=== PATIENT | male | born 1990 | race Caucasian/White ===

== ENCOUNTER 2016-06-23 09:17 | Emergency (ER) | payer OTHER ==
--- NOTE | 2016-06-23 10:00 | Emergency Department Record ---
History of Present Illness - General Chief complaint: Pain Stated complaint: SHOULDER INJURY Time Seen by Provider: 06/23/16 09:40 Source: Patient Mode of Arrival: Ambulatory Limitations: No limitations - History of Present Illness Initial comments: pt dislocated his l shoulder for the 2nd time in 2 months at work. the 1st time i relocated it and sent him to occupational health. it went out again this am and then popped back in on its own. he has not seen an orthopedic surgeon. he is already on light duty and this mornings dislocation happened with just climbing into his truck. MD Complaint: Joint pain Onset/Timin -: Hour(s) Location: Left, Shoulder History of Same: Yes Severity scale (1-10): 1 Consistency: Intermittent, Now resolved Worsens with: Exertion Associated Symptoms: Denies other symptoms - Related Data Home Medications Medication Instructions Recorded Confirmed Last Taken No Home Med [NO HOME MEDS] 06/23/16 06/23/16 Unknown Allergies Allergy/AdvReac Type Severity Reaction Status Date / Time tramadol HCl [From Ultram] Allergy NEUROTOXICI Verified 06/23/16 09:23 TY Travel Screening - Travel/Exposure Within Last 30 Days Have you traveled within the last 30 days?: No Review of Systems Reviewed: No additional complaints except as noted below Constitutional: Reports: As per HPI. Denies: Chills, Fever, Malaise, Night sweats, Weakness, Weight change Eyes: Reports: As per HPI. Denies: Eye discharge, Eye pain, Photophobia, Vision change ENT: Reports: As per HPI. Denies: Congestion, Dental pain, Ear pain, Epistaxis , Hearing loss, Throat pain Respiratory: Reports: As per HPI. Denies: Cough, Dyspnea, Hemoptysis, Stridor, Wheezes Cardiovascular: Reports: As per HPI. Denies: Arrhythmia, Chest pain, Dyspnea on exertion, Edema, Murmurs, Orthopnea, Palpitations, Paroxysmal nocturnal dyspnea, Rheumatic Fever, Syncope Endocrine: Reports: As per HPI. Denies: Fatigue, Heat or cold intolerance, Polydipsia, Polyuria Gastrointestinal: Reports: As per HPI. Denies: Abdominal pain, Constipation, Diarrhea, Hematemesis, Hematochezia, Melena, Nausea, Vomiting Genitourinary: Reports: As per HPI. Denies: Dysuria, Frequency, Hematuria, Incontinence, Retention, Testicular pain, Testicular mass, Urgency Musculoskeletal: Reports: As per HPI. Denies: Arthralgia, Back pain, Gout, Joint swelling, Myalgia, Neck pain Skin: Reports: As per HPI. Denies: Bruising, Change in color, Change in hair/ nails, Lesions, Pruritus, Rash Neurological: Reports: As per HPI. Denies: Abnormal gait, Confusion, Headache, Numbness, Paresthesias, Seizure, Tingling, Tremors, Vertigo, Weakness Psychiatric: Reports: As per HPI. Denies: Anxiety, Auditory hallucinations, Depression, Homicidal thoughts, Suicidal thoughts, Visual hallucinations Hematological/Lymphatic: Reports: As per HPI. Denies: Anemia, Blood Clots, Easy bleeding, Easy bruising, Swollen glands Past Medical History - SOCIAL HISTORY Smoking Status: Former smoker Alcohol Use: None Drug Use: None - RESPIRATORY Hx Respiratory Disorders: No - CARDIOVASCULAR Hx Cardio Disorders: No - NEURO Hx Neuro Disorders: No - GI Hx GI Disorders: No - Hx Genitourinary Disorders: No - ENDOCRINE Hx Endocrine Disorders: No - MUSCULOSKELETAL Hx Musculoskeletal Disorders: No - PSYCH Hx Psych Problems: No - HEMATOLOGY/ONCOLOGY Hx Hematology/Oncology Disorders: No Family Medical History Any Significant Family History?: No Physical Exam - General General Appearance: Alert, Oriented x3, Cooperative, Mild distress - Head Head exam: Normal inspection - Eye Eye exam: Normal appearance, PERRL, EOMI Pupils: Normal accommodation - ENT ENT exam: Normal exam, Mucous membranes moist, Normal external ear exam, Normal orophraynx Ear exam: Normal external inspection. negative: External canal tenderness Nasal Exam: Normal inspection. negative: Discharge, Sinus tenderness Mouth exam: Normal external inspection, Tongue normal Teeth exam: Normal inspection. negative: Dental caries Throat exam: Normal inspection. negative: Tonsillar erythema, Tonsillar exudate - Neck Neck exam: Normal inspection, Full ROM. negative: Tenderness - Respiratory Respiratory exam: Normal lung sounds bilaterally. negative: Respiratory distress - Cardiovascular Cardiovascular Exam: Regular rate, Normal rhythm, Normal heart sounds - GI/Abdominal GI/Abdominal exam: Soft, Normal bowel sounds. negative: Tenderness - Rectal Rectal exam: Deferred - exam: Deferred - Extremities Extremities exam: Normal capillary refill, Tenderness, Other (s,v intact). negative: Normal inspection, Full ROM Image of Full Body: 1 - tender, lrom - Back Back exam: Reports: Normal inspection, Full ROM. Denies: Muscle spasm, Rash noted, Tenderness - Neurological Neurological exam: Alert, CN II-XII intact, Normal gait, Oriented X3 - Psychiatric Psychiatric exam: Normal affect, Normal mood - Skin Skin exam: Dry, Intact, Normal color, Warm Course Vital Signs 06/23/16 09:18 Temperature 98.1 F Pulse Rate 87 Respiratory 18 Rate Blood Pressure 136/86 Pulse Ox 96 - Reevaluation(s) Reevaluation #1: 06/23/16 10:38 d/w dr carmichael at [facility] Medical Decision Making - Management Options MDM Management: Additional Work-up Planned (e.g. ADM/Transfer/OP Study) - Data Complexity MDM Data: X-Ray Ordered and/or Reviewed - Radiology Data Radiology results: Report reviewed, Image reviewed Disposition Disposition: Discharge Clinical Impression: Shoulder dislocation, recurrent Qualifiers: Laterality: left Qualified Code(s): M24.412 - Recurrent dislocation, left shoulder Disposition: Home, Self-Care Condition: (1) Good Instructions: Shoulder Dislocation Exercises (GEN), Shoulder Separation Exercises (GEN), Shoulder Dislocation (ED) Additional Instructions: follow up with occupational health and orthopedics without fail. ice to shoulder. sling for 3 days only. Forms: Patient Portal Access, Return to Work/School
[2016-06-23] MEDS ORDERED: IBUPROFEN 600 MG TABLET PO ONE (10:41)
--- NOTE | 2016-06-25 09:58 | RADIOLOGY REPORT ---
EXAM: LEFT SHOULDER HISTORY: PAIN. TECHNIQUE: Four views of the left shoulder were obtained. Comparison: 05/01/16 left shoulder. Encounter: Initial. FINDINGS: Negative for an acute fracture or dislocation. Subtle lucency associated with the bony glenoid seen on the second submitted image only may in part relate to overlying fat planes and artifact. Sequelae of remote injury/ prior dislocation not excluded. The soft tissues are unremarkable. IMPRESSION: NEGATIVE FOR ACUTE ABNORMALITY. QUESTIONABLE BANKART DEFORMITY OF THE BONY GLENOID, ABOVE. JOB NUMBER: [id number] [facility]
== END 2016-06-23 10:55 | disposition home or self-care (01) ==
LOC: ER 09:17
DX: M24.412 Recurrent dislocation, left shoulder (principal)
CPT/HCPCS: 99283